=== PATIENT | male | born 1960 | race Caucasian/White ===

== ENCOUNTER 2017-05-18 07:15 | Inpatient (IN) | payer OTHER ==
[~2017-05-18 07:15] MED LIST: SODIUM CHLORIDE IV ONE; TRANEXAMIC ACID 1,000 MG in NS 100 ML IV ONE; TRANEXAMIC ACID IV ONE; morphINE PF 5 MG/10 ML INJ IT ONE
[2017-05-18] MEDS ORDERED: CHLORHEXIDINE GLUC HIBICLENS 118 ML BTL TP ONE (08:53)
[2017-05-18] MEDS ORDERED: THROMBIN (BOVINE) 20,000 UNIT VIAL TP ONE (08:53)
[2017-05-18] MEDS ORDERED: BUPIVACAINE 0.25% 30 ML SDV ONE ×2 (08:53→18:22)
[2017-05-18] MEDS ORDERED: CITRATE DEXTROSE SOLN 500 ML BAG ONE (08:54)
[2017-05-18] MEDS ORDERED: BACITRACIN 50,000 UNITS/10 ML SYR IRR ONE ×5 (08:54→18:11)
[2017-05-18] MEDS ORDERED: ACETAMINOPHEN 500 MG TAB PO ONE (08:57)
[2017-05-18] MEDS ORDERED: ceFAZolin 2 GM/SWFI 2 GM/20 ML SYR IVP ONE ×2 (08:57→10:00)
[2017-05-18] MEDS ORDERED: fentaNYL 100 MCG/2 ML INJ IT ONE ×3 (08:57→18:45)
[2017-05-18] MEDS ORDERED: LR 1,000 ML IV ONE (08:58)
[2017-05-18] MEDS ORDERED: PROPOFOL/EMULSION 500 MG/50 ML BOTTLE IV ONE ×4 (09:57→17:00)
[2017-05-18] MEDS ORDERED: fentaNYL 250 MCG/5 ML INJ ONE (09:58)
[2017-05-18] MEDS ORDERED: MIDAZOLAM 2 MG/2 ML VIAL IVP ONE (10:00)
--- NOTE | 2017-05-18 10:03 | PDANEPAE ---
ANE History of Present Illness 56 year old male for L2-S1 fusion. History significant for asthma, htn, sleep apnea,and obesity. ANE Past Medical History - Cardiovascular History Hx Hypertension: Yes Hx Arrhythmias: No Hx Chest Pain: No Hx Coronary Artery / Peripheral Vascular Disease: No Hx CHF / Valvular Disease: No Hx Palpitations: No - Pulmonary History Hx Asthma/Reactive Airway Disease: Yes Hx Recent Upper Respiratory Infection: No Hx Oxygen in Use at Home: No Hx Sleep Apnea: No Sleep Apnea Screening Result - Last Documented: Positive Pulmonary History Comment: Asthma - Neurologic History Hx Cerebrovascular Accident: No Hx Seizures: No Hx Dementia: No - Endocrine History Hx Diabetes: No - Renal History Hx Renal Disorders: No - Liver History Hx Hepatic Disorders: No - Neurological & Psychiatric Hx Hx Neurological and Psychiatric Disorders: No - Cancer History Hx Cancer: No - Congenital Disorder History Hx Congenital Disorders: No - GI History Hx Gastrointestinal Disorders: No - Other Health History Other Health History: Degenerative disc disease - Chronic Pain History Chronic Pain: Yes - Surgical History Prior Surgeries: right MITA,. tonsillectomy. L/5 Laminectomy ANE Review of Systems Review of systems is: negative Review of Systems: - Exercise capacity METS (RN): 4 METS ANE Patient History - Allergies Allergies/Adverse Reactions: ENVIRONMENTAL Allergy (Mild, Uncoded 01/02/12 10:16) NASAL CONGESTION/SNEEZING/WATERY EYES - Home Medications Home Medications: Albuterol [Proventil Inhaler HFA (*)] 1 - 2 puffs IH Q4H 05/02/17 [Last Taken ] Montelukast Sodium [Singulair] 10 mg PO HS 05/02/17 [Last Taken 05/17/17] Budesonide/Formoterol 160/4.5 [Symbicort 160-4.5 Mcg Inh (*)] 2 puffs IH BID [Last Taken 05/17/17] Carvedilol 12.5 mg PO BIDMEAL 05/17/17 [Last Taken 05/17/17] Hydrochlorothiazide [HCTZ (*)] 25 mg PO DAILY 05/17/17 [Last Taken 05/17/17] Irbesartan [Avapro] 300 mg PO HS 05/17/17 [Last Taken 05/17/17] Pravastatin Sodium [Pravachol] 40 mg PO DAILY 05/17/17 [Last Taken 05/17/17] Spironolactone [Aldactone 25 MG (*)] 50 mg PO DAILY 05/17/17 [Last Taken ] amLODIPine BESYLATE [Norvasc 10 mg (*)] 10 mg PO HS 05/17/17 [Last Taken ] - NPO status NPO Since - Liquids (Date): 05/17/17 NPO Since - Liquids (Time): 21:00 NPO Since - Solids (Date): 05/17/17 NPO Since - Solids (Time): 21:00 - Smoking Hx Smoking Status: Former smoker - Family Anes Hx Family Hx Anesthesia Complications: none ANE Labs/Vital Signs - Vital Signs Blood Pressure: 139/92 Heart Rate: 69 Respiratory Rate: 12 O2 Sat (%): 94 Height: 177.8 cm Weight: 113.398 kg ANE Physical Exam - Airway Neck exam: FROM Mallampati Score: Class 3 Mouth exam: dentures - Pulmonary Pulmonary: clear to auscultation - Cardiovascular Cardiovascular: regular rate and rhythym - ASA Status ASA Status: III ANE Anesthesia Plan Anesthesia Plan: general endotracheal anesthesia Lines/Monitors: arterial line
--- NOTE | 2017-05-18 11:38 | PDHPUP ---
History & Physical Update H&P update statement: This history and physical update is based on an assessment of the patient which was completed after admission or registration (within 24 hours), but prior to the surgery/procedure. H&P update: H&P reviewed & patient examined, no change in patient's condition since H&P completed
[2017-05-18] MEDS ORDERED: HYDROmorphONE/DILAUDID 2 MG/ML INJ ONE (12:15)
[2017-05-18] MEDS ORDERED: HYDROCODONE/APAP 5/325 TAB PO PRN (12:40)
[2017-05-18] MEDS ORDERED: LABETALOL HCL 5 MG/ML 20 ML MDV IVP PRN (12:40)
[2017-05-18] MEDS ORDERED: METOCLOPRAMIDE 10 MG/2 ML VIAL IVP PRN (12:40)
[2017-05-18] MEDS ORDERED: LR 500 ML IV PRN (12:40)
[2017-05-18] MEDS ORDERED: ONDANSETRON 4 MG/2 ML VIAL IVP PRN ×2 (12:40→19:23)
[2017-05-18] MEDS ORDERED: PROMETHAZINE HCL 25 MG/ML INJ IVP PRN (12:40)
[2017-05-18] MEDS ORDERED: ALBUTEROL 3 ML DEYVIAL IH PRN (12:40)
[2017-05-18] MEDS ORDERED: NALOXONE HCL 0.4 MG/ML INJ IVP PRN ×2 (12:40→19:23)
[2017-05-18] MEDS ORDERED: DEXAMETHASONE 4 MG/ML VIAL IVP PRN (12:40)
[2017-05-18] MEDS ORDERED: MEPERIDINE 25 MG/ML SYR IVP PRN (12:40)
[2017-05-18] MEDS ORDERED: PROPOFOL 200 MG/20 ML VIAL ONE ×3 (16:24→19:05)
[2017-05-18] MEDS ORDERED: fentaNYL 100 MCG/2 ML INJ ONE ×4 (16:40→20:33)
[2017-05-18] MEDS ORDERED: morphINE PF 5 MG/10 ML INJ ONE (16:40)
[2017-05-18] MEDS ORDERED: morphINE PF 5 MG/10 ML INJ IT ONE ×2 (18:30→18:45)
[2017-05-18] MEDS ORDERED: LACTULOSE 20 GM/30 ML UDCUP PO PRN (19:23)
[2017-05-18] MEDS ORDERED: MAGNESIUM HYDROXIDE 30 ML UDCUP PO PRN (19:23)
[2017-05-18] MEDS ORDERED: BISACODYL 10 MG SUPP PR PRN (19:23)
[2017-05-18] MEDS ORDERED: diphenhydrAMINE 25 MG CAP PO PRN (19:23)
[2017-05-18] MEDS ORDERED: fentaNYL 100 MCG/2 ML INJ IVP ONE (19:30)
--- NOTE | 2017-05-18 19:30 | SOAPPROG ---
SOAP Progress Note Assessment/Plan: Assessment: 56 yo M sp T12-S1 fusion with L2/3, L3/4, L4/5, L5/S1 TLIF Plan: neuro: stable LSO brace when out of bed follow hg/hct for high intraop blood loss PT/OT please call with neuro changes 05/18/17 19:28 Subjective: + back pain, no leg pain. Objective: Vital Signs Temp Pulse Resp BP Pulse Ox 36.6 C 69 12 138/91 H 95 05/18/17 11:12 05/18/17 11:12 05/18/17 11:12 05/18/17 11:12 05/18/17 11:12 somnolent PERRL, EOMI JOSE D x 4 + light touch ICD10 Worksheet Patient Problems: Problems Problem Status Onset Fusion of spine of thoracolumbar region Acute - ICD10 Problem Qualifiers (1) Fusion of spine of thoracolumbar region
[2017-05-18] MEDS ORDERED: DIAZEPAM 10 MG/2 ML SYR IVP PRN ×2 (19:37→19:38)
[2017-05-18] MEDS ORDERED: HYDROmorphONE/DILAUDID 1 MG/ML INJ ONE ×2 (19:40→19:42)
[2017-05-18] MEDS ORDERED: DIAZEPAM 10 MG/2 ML SYR ONE (19:40)
[2017-05-18] MEDS: fentaNYL 100 MCG/2 ML INJ IVP PRN ×3 (19:44→20:49)
[2017-05-18] MEDS: DIAZEPAM 10 MG/2 ML SYR IVP PRN ×3 (19:44→20:28)
--- NOTE | 2017-05-18 19:45 | POSTANESTH ---
Post Anesthetic Evaluation Cardiovascular Status: Normal, Stable Respiratory Status: Normal, Stable Level of Consciousness/Mental Status: Mildly Sleepy, Arousable Pain Control: Adequate, Prn Tx Ordered Nausea/Vomiting Control: Adequate, Prn Tx Ordered Complications Possibly Related to Anesthesia: None Noted
[2017-05-18] MEDS: HYDROmorphONE/DILAUDID 1 MG/ML INJ IVP PRN ×2 (19:54→20:28)
[2017-05-18] MEDS: NS W/ 20 KCl/L 1,000 ML IV SCH (21:30)
[2017-05-18] MEDS: morphINE PCA 30 MG/30 ML PCA IV PRN (21:38)
[2017-05-18] MEDS: ALBUTEROL 60 PUFFS/8 GM MDI IH SCH ×2 (21:49→23:36)
[2017-05-18] MEDS: FAMOTIDINE 20 MG TAB PO SCH (22:50)
[2017-05-18] MEDS: morphINE SR 30 MG TAB PO SCH (22:52)
[2017-05-18] MEDS: POLYETHYLENE GLYCOL 3350 17 GM PKT PO SCH (22:56)
[2017-05-18] MEDS: SENNOSIDES/DOCUSATE SODIUM TAB PO SCH (22:57)
[2017-05-18] MEDS: ceFAZolin 2 GM/DEXTROSE 100 ML IV SCH (22:57)
[2017-05-18] MEDS: BUDESONIDE/FORMOTEROL 160/4.5 60 PUFFS/MDI IH SCH (23:35)
[2017-05-19] MEDS: METHOCARBAMOL 750 MG TAB PO PRN ×3 (00:58→15:51)
--- NOTE | 2017-05-19 01:19 | GOP ---
[f rep st] OPERATIVE REPORT DATE OF OPERATION: 05/18/2017 SURGEON: Jun Avendano MD NEUROSURGEON: Jun Avendano MD SHAKE BACKBOARD NOTCHER: EMI Amaya ANESTHESIA: General endotracheal. PREOPERATIVE DIAGNOSIS: 1. Severe multilevel lumbar degenerative joint disease with severe spinal stenosis and loss of tammy l sagittal alignment (progressive kyphosis) with intractable low back pain and vqhfk-kodhawk-mhxr-lef t lower extremity radiculopathy and bilateral neurogenic claudication. 2. Failed conservative care. 3. Obesity. 4. High risk surgical candidate, given age, comorbidities, and required surgical intervention. POSTOPERATIVE DIAGNOSIS: 1. Severe multilevel lumbar degenerative joint disease with severe spinal stenosis and loss of tammy l sagittal alignment (progressive kyphosis) with intractable low back pain and dhtin-yodiwdi-sfnt-lef t lower extremity radiculopathy and bilateral neurogenic claudication. 2. Failed conservative care. 3. Obesity. 4. High risk surgical candidate, given age, comorbidities, and required surgical intervention. PROCEDURE PERFORMED: 1. Right-sided L2-3, L3-4, L4-5, and L5-S1 far lateral transpedicular decompression with T12 through S1 posterior segmental (pedicle screw and Axle device) fixation and posterolateral fusion with local autograft, bone morphogenic protein, and morselized allograft. 2. L2-3, L3-4, L4-5, and L5-S1 posterior/transforaminal lumbar interbody fusion with two structural PEEK interbody spacers, local autograft and bone morphogenic protein at each level. 3. Use of intraoperative microscopy, fluoroscopy, and computer volumetric stereotactic navigation wi th intraoperative neurophysiologic testing. 4. Injection of intrathecal narcotic analgesics and subcutaneous and intramuscular local anesthesia for postoperative pain control. FINDINGS: ESTIMATED BLOOD LOSS: 1000 cc. INDICATIONS: The patient is a 56-year-old man with intractable low back and pfyyq-bawqsyf-qixm-left lower extremity radicular symptoms, and bilateral lower extremity neurogenic claudication secondary t o severe multilevel lumbar degenerative joint disease and severe spinal stenosis with severe lateral recess impingement and loss of normal sagittal alignment with progressive kyphosis. The patient has failed extensive conservative care and presents now for multilevel surgical decompression and stabili zation procedure. DESCRIPTION OF PROCEDURE: After informed consent was obtained, the patient was taken to the operatin g room and placed in prone position on the Dustin table. The lumbosacral area was prepped and drape d in sterile fashion. After fluoroscopic localization of the correct level, the subcutaneous and int ramuscular tissues were infiltrated with local anesthesia. A midline linear incision was then create d from approximately L2 through S1. This was carried down to the fascial layer, which was incised us ing monopolar electrocautery and carried to the subcostal plane along the spinous processes and dulce a bilaterally. Intraoperative fluoroscopy was again utilized to verify the correct levels. Followin g this, the dissection was carried out over the facet joints. The Versa-Trac retractor system was in serted, and the levels were explored, along with the L1-2 level which demonstrated very severe arthri tic hypertrophy and some hypermobility. Based on the conversation with the patient preoperatively, I felt that it was in his best interests to extend this up to T12. This was also in conjunction with the preoperative MRI. The dissection was carried up to the T12 level therefore and the dissection ca rried out over the facet joints. Following this, the microscope was brought in, and right-sided far lateral transpedicular decompressions were performed with complete unroofing of the facet joints and neural foramen at L2-3, L3-4, L4-5, and L5-S1 on the right. The laminae were undercut so that a bila teral central canal decompression was achieved, as well as an extensive decompression of the lateral recesses. Following adequate decompression, the [employer] Neuronavigational System was brought in, and using computer volumetric stereotactic navigation, pedicle screws were placed at T12 through L1 bila terally. Each individual screw was tested neurophysiologically with monopolar electrostimulation and interpretation of the potentials by the surgeon. The short rods were then serially placed, first at L5-S1, then at L4-5, then at L3-4, then at L2-3, during which time distraction was created across th e interspaces, and complete diskectomies were performed with preparation of the endplates and placeme nt of 2 structural PEEK interbody spacers, local autograft, and bone protein at each level. The shor t rods were removed, and longer rods with maximal lordosis were then placed and secured under alf martin in order to further increase the amount of lordosis and to minimize the potential for posterior graft migration. The wound was copiously irrigated antibiotic irrigation. Meticulous hemostasis was achieved. 200 mcg of Duramorph and 150 mcg of fentanyl were then injected intrathecally for postope rative pain control. The remaining facet joints and lamina were then extensively decorticated from T 12 through S1, and the residual local autograft from the facetectomies, along with bone morphogenic p rotein and morselized allograft were placed out laterally from T12 through S1 for posterolateral fusi on. A drain was placed. The subcutaneous and intramuscular tissues were re-infiltrated with local a nesthesia, and after reverification of good position of the screws rods and interbody spacers, Axle d evices were placed at the T12-L1 and L5-S1 levels in order to prevent junctional kyphosis, and also b ecause the L5 screw did not have much bone in it due to the extensive amount of decompression require d. Following this, the wound was closed in a layered fashion using interrupted Vicryl sutures, follo wed by Steri-Strips on the skin. COMPLICATIONS: None. DISPOSITION: The patient is currently in the process of being repositioned for extubation. /[id number]/MODL
[2017-05-19] MEDS: ALBUTEROL 60 PUFFS/8 GM MDI IH SCH ×2 (03:23→08:10)
[2017-05-19] MEDS: IRBESARTAN 150 MG TAB PO SCH (03:33)
[2017-05-19] MEDS: PROMETHAZINE HCL 25 MG/ML INJ IVP PRN ×2 (05:07→12:01)
[2017-05-19 05:33] LABS: PLATELET COUNT 339 10^3/uL (150-400)
[2017-05-19] MEDS: ceFAZolin 2 GM/DEXTROSE 100 ML IV SCH (05:38)
[2017-05-19] MEDS: morphINE PCA 30 MG/30 ML PCA IV PRN (07:09)
[2017-05-19] MEDS: MONTELUKAST SODIUM 10 MG TAB PO SCH ×2 (07:10→21:25)
[2017-05-19] MEDS: oxyCODONE IR 5 MG TAB PO PRN (07:24)
[2017-05-19] MEDS: NS W/ 20 KCl/L 1,000 ML IV SCH (07:58)
[2017-05-19] MEDS ORDERED: ALBUTEROL 60 PUFFS/8 GM MDI IH PRN (08:07)
[2017-05-19] MEDS: BUDESONIDE/FORMOTEROL 160/4.5 60 PUFFS/MDI IH SCH ×2 (08:13→20:58)
--- NOTE | 2017-05-19 08:15 | NEUSURGPN ---
Date of Surgery: 05/18/17 Post Op Day: 1 Assessment/Plan: 56 yo male s/p T12-S1 fusion with L2-S1 TLIF - neuro stable - pain control: start MS Contin this morning and Oxycodone, start to wean off of CINDER PITMAN - continue WILMAN drain - postop L-spine x-rays pending - wear brace when out of bed - PT/OT - dc travis, dc art line - SCDs/TEDs/Lovenox - Likely transfer to floor today - Please contact neurosurgery with any changes in neuro status/exam Discussed with Dr. Sterling Subjective: Having localized back pain. No LE pain. Objective: Awake. Alert. PERRL. EOMI Facial expression symmetrical Muscle strength full at 5/5 Sensation intact - Physician Discussed Patient with : Juan Alberto Neurosurgery Physical Exam - Vitals, I&O, Labs I and O 05/18/17 05/19/17 05/20/17 05:59 05:59 05:59 Intake Total 7118 Output Total 2740 60 Balance 4378 -60 Weight 121.8 kg Intake: Oral (ml) 210 IV Intake (ml) 5700 IV Infused (ml) 1208 NS W/ 20 KCl/L 1,000 ml @ 1208 100 mls/hr IV CONT MOISES Rx#:[id number] Output: Urine (ml) 1150 60 Catheter 1150 60 Estimated Blood Loss (ml) 1000 Emesis (ml) 0 WILMAN Drain Output (ml) 590 Back Dustin [place] 590 Vital Signs Temp Pulse Resp BP Pulse Ox 36.6 C 99 10 L 102/58 L 93 05/19/17 07:45 05/19/17 07:45 05/19/17 07:45 05/19/17 07:45 05/19/17 07:45 Laboratory Results 05/19/17 05:15 05/19/17 05:15 ICD10 Worksheet Patient Problems: Problems Problem Status Onset Fusion of spine of thoracolumbar region Acute
[2017-05-19] MEDS: morphINE SR 30 MG TAB PO SCH (08:57)
[2017-05-19] MEDS: FAMOTIDINE 20 MG TAB PO SCH ×2 (08:58→21:25)
[2017-05-19] MEDS: SENNOSIDES/DOCUSATE SODIUM TAB PO SCH ×2 (08:58→21:25)
[2017-05-19] MEDS: PRAVASTATIN SODIUM 40 MG TAB PO SCH (08:58)
[2017-05-19] MEDS: POLYETHYLENE GLYCOL 3350 17 GM PKT PO SCH ×3 (08:58→21:25)
[2017-05-19] MEDS ORDERED: HYDROCHLOROTHIAZIDE 25 MG TAB PO SCH (09:00)
[2017-05-19] MEDS ORDERED: SPIRONOLACTONE 25 MG TAB PO SCH (09:00)
[2017-05-19] MEDS: CARVEDILOL 6.25 MG TAB PO SCH ×2 (09:04→17:56)
[2017-05-19] MEDS: ENOXAPARIN 40 MG/0.4 ML SYR SC SCH (09:04)
--- NOTE | 2017-05-19 09:18 | ASMTCMCOM ---
CM Note CM Note Notes: Patient is POD #1 T12 - S1 fusion with L2-S1 TLIF. He is stable and recovering in the ICU. Patient lives locally with his . PT/OT evals have been ordered, and we will await their recommendations for discharge planning. Patient will likely transfer to the floor today. Date Signed: 05/19/2017 09:17 AM Electronically Signed By:Milka Pa RN
[2017-05-19] MEDS: HYDROmorphONE/DILAUDID 2 MG TAB PO PRN ×3 (12:01→21:24)
[2017-05-19] MEDS ORDERED: NS 1,000 ML IV ONE ×2 (12:53→14:24)
[2017-05-19] MEDS ORDERED: DIAZEPAM IVP ONE (14:15)
--- NOTE | 2017-05-19 15:11 | GCON ---
[f rep st] CONSULTATION PULMONARY/CRITICAL CARE CONSULTATION. DATE OF CONSULTATION: 05/19/2017 REFERRING PHYSICIAN: Jun Avendano MD REASON FOR REFERRAL: Evaluation and management of hyperkalemia and acute renal insufficiency. HISTORY: The patient is a 56-year-old male with a history of hypertension, who had worsening back pa in and leg pain, who underwent a T12-S1 fusion with an L2-S1. His intraoperative course was unremark able. He was kept in the intensive care unit overnight. Today, he reports significant back pain cau sing him to have to move around quite a bit in order to be comfortable. He is wearing a back brace. He has had some nausea with oral pain medications, and has had just moderate p.o. intake. He denies any vomiting. PAST MEDICAL HISTORY: 1. Hypertension. 2. Asthma/reactive airways disease. 3. Sinusitis/polyposis status post endoscopic sinus surgery and polypectomy. MEDICATIONS: At the time of admission include albuterol, Singulair, Symbicort, Norvasc, Pravachol, A vapro, carvedilol, spironolactone, hydrochlorothiazide acute please ALLERGIES: None. SOCIAL HISTORY: The patient is a former smoker. He drinks alcohol socially. FAMILY HISTORY: Positive for hypertension. REVIEW OF SYSTEMS: A 10-point review of systems adds nothing to the history of present illness. PHYSICAL EXAMINATION: GENERAL: The patient is awake, alert, and in no acute distress except when mo ving, which is causing back pain. VITAL SIGNS: Blood pressure is 121/70 with a heart rate of 100. Respiratory rate is 12, oxygen saturations are 95% on room air. HEENT: Normocephalic and atraumatic . No icterus. NECK: No JVD. Trachea is midline. CHEST: Clear to auscultation. CARDIAC: Regula r rate and rhythm without murmur. ABDOMEN: Soft, nontender. Bowel sounds are present. EXTREMITIES : No clubbing, cyanosis, or edema. NEURO: The patient is awake and alert. No gross motor or senso ry deficits. LAB: White blood count is 20.9, up from 8.7. Hemoglobin is 11.8, down from 14.4. Chemistry group s hows a potassium of 5.8, down from 6.0 earlier this morning. Creatinine is 2.2, up from 1.8 earlier this morning, and up from 0.8 2 weeks ago. Blood sugar 147. Arterial blood gas last night shows a p H of 7.33 with a pO2 of 120, CO2 of 33. ASSESSMENT: 1. Status post lumbar spine surgery. The patient is having postoperative pain as expected, which is being managed with oral and IV narcotics, as well as Valium and muscle relaxants. 2. Acute kidney injury. The patient's creatinine has increased markedly and his urine output is mikael n quite a bit. There are no obvious renal insults besides his chronic antihypertensives. I suspect he has a component of intravascular depletion perioperatively. 3. Hyperkalemia. This is likely related to the patient's acute kidney injury. He is not having any concerning ECG abnormalities on his monitor. 4. Asthma/reactive airways disease. The patient currently denies any respiratory difficulties. 5. Obesity. RECOMMENDATIONS: 1. I will give a bolus of 1 L normal saline. 2. I am going to hold his antihypertensives, specifically including spironolactone, which could cont ribute to hyperkalemia. 3. A chemistry group will be rechecked after a L of saline, and further efforts to reduce his potass ium and improve urine output and renal function will be initiated as indicated. /[id number]/MODL
[2017-05-19] MEDS ORDERED: SCOPOLAMINE HYDROBROMIDE 1 MG/3 DAYS PATCH TD ONE (16:00)
[2017-05-20] MEDS: morphINE PCA 30 MG/30 ML PCA IV PRN (03:42)
[2017-05-20] MEDS: HYDROmorphONE/DILAUDID 2 MG TAB PO PRN ×5 (03:43→22:54)
[2017-05-20] MEDS: morphINE SR 30 MG TAB PO SCH ×3 (05:29→21:11)
[2017-05-20] MEDS: METHOCARBAMOL 750 MG TAB PO PRN ×4 (06:00→22:53)
[2017-05-20] MEDS: oxyCODONE IR 5 MG TAB PO PRN ×4 (06:00→21:11)
--- NOTE | 2017-05-20 06:54 | NEUSURGPN ---
Date of Surgery: 05/19/17 Post Op Day: 1 Assessment/Plan: Assessment: 56 yo male s/p T12-S1 fusion with L2-S1 TLIF POD #2 Plan: -neuro stable -pain control: MSContin/Oxycodone, start to wean off of WELDING MACHINE ASSEMBLER -pt states legs feel good/pt with expected lower back pain -continue WILMAN drain -BUN/Cr improved -postop L-spine x-rays look good, no complications-reviewed with Dr Martin -wear brace when out of bed -PT/OT -travis out and voiding on own -transfer to floor today -SCDs/TEDs/Lovenox -Please contact neurosurgery with any changes in neuro status/exam -Discussed with Dr. Martin. Subjective: Awake and alert. Pt with expected lower back pain. Legs feel better. No pedersen/ neck/chest/abd or gu complaints. No f/c/n/v/d. Objective: AAO x 3, PERRLA/EOMI no droop CN 2-12 grossly intact +lt touch 5/5 BUE/BLE = CDI WILMAN in place Neuro Check Frequency: per routine Urinary Catheter in Place: No - Physician Discussed Patient with : Juan Alberto Neurosurgery Physical Exam - Vitals, I&O, Labs I and O 05/19/17 05/20/17 05/21/17 05:59 05:59 05:59 Intake Total 7118 5556 Output Total 2740 2205 Balance 4378 3351 Weight 121.8 kg Intake: Oral (ml) 210 1650 IV Intake (ml) 5700 906 IV Infused (ml) 1208 3000 NS W/ 20 KCl/L 1,000 ml @ 1208 100 mls/hr IV CONT MOISES Rx#:[id number] Ns 1,000 ml @ 3000 mls/hr 3000 IV ONCE ONE Rx#: [id number] Output: Urine (ml) 1150 1645 Catheter 1150 60 Toilet 100 Urinal 1485 Estimated Blood Loss (ml) 1000 Emesis (ml) 0 WILMAN Drain Output (ml) 590 560 Back Dustin [place] 590 560 Other: Number of Voids Urinal 5 Number of Stools Urinal 0 Vital Signs Temp Pulse Resp BP Pulse Ox 37.0 C 100 16 96/55 L 96 05/20/17 00:00 05/20/17 04:00 05/20/17 04:00 05/20/17 04:00 05/20/17 04:00 Laboratory Results 05/19/17 05:15 05/20/17 05:38 ICD10 Worksheet Patient Problems: Problems Problem Status Onset Fusion of spine of thoracolumbar region Acute
[2017-05-20] MEDS: SENNOSIDES/DOCUSATE SODIUM TAB PO SCH ×2 (08:26→21:11)
[2017-05-20] MEDS: CARVEDILOL 6.25 MG TAB PO SCH ×2 (08:30→18:28)
[2017-05-20] MEDS: FAMOTIDINE 20 MG TAB PO SCH ×2 (08:30→21:11)
[2017-05-20] MEDS: PRAVASTATIN SODIUM 40 MG TAB PO SCH (08:30)
[2017-05-20] MEDS: ONDANSETRON DISINTEGRATING 4 MG TAB PO PRN (08:30)
[2017-05-20] MEDS: POLYETHYLENE GLYCOL 3350 17 GM PKT PO SCH ×3 (08:31→21:14)
[2017-05-20] MEDS: BUDESONIDE/FORMOTEROL 160/4.5 60 PUFFS/MDI IH SCH ×2 (08:31→22:02)
[2017-05-20] MEDS: ENOXAPARIN 40 MG/0.4 ML SYR SC SCH (08:31)
[2017-05-20] MEDS ORDERED: METOCLOPRAMIDE 10 MG/2 ML VIAL IVP ONE (10:30)
[2017-05-20] MEDS ORDERED: METHYLNALTREXONE BROMIDE 12 MG/0.6 ML INJ SC ONE (10:30)
--- NOTE | 2017-05-20 15:24 | ASMTCMCOM ---
CM Note CM Note Notes: Pt s/p spinal surgery. PT has cleared him. OT recommended home vs home care. Anticipate d/c with no CM needs but will follow up with pt prior to d/c regarding any unidentified needs. Date Signed: 05/20/2017 03:23 PM Electronically Signed By:CARLOS Rowe
[2017-05-21] MEDS: oxyCODONE IR 5 MG TAB PO PRN ×5 (02:06→20:41)
[2017-05-21] MEDS: MONTELUKAST SODIUM 10 MG TAB PO SCH ×2 (02:28→20:40)
[2017-05-21] MEDS: HYDROmorphONE/DILAUDID 2 MG TAB PO PRN (04:24)
--- NOTE | 2017-05-21 07:04 | NEUSURGPN ---
Date of Surgery: 05/18/17 Post Op Day: 3 Assessment/Plan: Assessment: 56 yo male s/p T12-S1 fusion with L2-S1 TLIF POD #3 Plan: -neuro stable -pain control: MSContin/Oxycodone-will try to adjust as he feels mainly lower back pain -pt states legs feel good/pt with expected lower back pain -continue WILMAN drain as still productive -BUN/Cr improved c/w prior labs -postop L-spine x-rays look good, no complications-reviewed with Dr Martin yesterday -wear brace when out of bed-fitting well -PT/OT-CPM -travis out and voiding well on own -plan for dc in next 1-2 days -SCDs/TEDs/Lovenox -Please contact neurosurgery with any changes in neuro status/exam -Discussed with Dr. Martin. Subjective: Awake and alert. NAD. Eating/drinking and voiding. No f/c/n/v/d. No pedersen/neck/ chest/abd or gu complaints. Legs feel good. Pt with expected lower back pain. Objective: AAO x 3, PERRLA/EOMI no droop CN 2-12 grossly intact +lt touch 5/5 BUE/BLE = CDI WILMAN in place Neuro Check Frequency: per routine Urinary Catheter in Place: No - Physician Discussed Patient with : Juan Alberto Neurosurgery Physical Exam - Vitals, I&O, Labs I and O 05/20/17 05/21/17 05/22/17 05:59 05:59 05:59 Intake Total 5556 450 Output Total 2205 1040 Balance 3351 -590 Intake: Oral (ml) 1650 450 IV Intake (ml) 906 IV Infused (ml) 3000 Ns 1,000 ml @ 3000 mls/hr 3000 IV ONCE ONE Rx#: [id number] Output: Urine (ml) 1645 725 Catheter 60 Toilet 100 Urinal 1485 725 WILMAN Drain Output (ml) 560 315 Back Dustin [place] 560 315 Other: Number of Voids Toilet 1 Urinal 5 1 Number of Stools Urinal 0 Vital Signs Temp Pulse Resp BP Pulse Ox 36.7 C 94 18 120/44 L 96 05/20/17 23:06 05/20/17 23:06 05/20/17 23:06 05/20/17 23:06 05/20/17 23:06 Laboratory Results 05/19/17 05:15 05/21/17 04:31 ICD10 Worksheet Patient Problems: Problems Problem Status Onset Fusion of spine of thoracolumbar region Acute
[2017-05-21] MEDS: CARVEDILOL 6.25 MG TAB PO SCH ×2 (08:01→18:27)
[2017-05-21] MEDS: POLYETHYLENE GLYCOL 3350 17 GM PKT PO SCH ×3 (08:01→22:17)
[2017-05-21] MEDS: ENOXAPARIN 40 MG/0.4 ML SYR SC SCH (08:01)
[2017-05-21] MEDS: FAMOTIDINE 20 MG TAB PO SCH ×2 (08:02→20:40)
[2017-05-21] MEDS: SENNOSIDES/DOCUSATE SODIUM TAB PO SCH ×2 (08:02→20:40)
[2017-05-21] MEDS: morphINE SR 30 MG TAB PO SCH ×2 (08:02→16:41)
[2017-05-21] MEDS: PRAVASTATIN SODIUM 40 MG TAB PO SCH (08:02)
[2017-05-21] MEDS: METHOCARBAMOL 750 MG TAB PO PRN ×2 (12:33→20:40)
[2017-05-21] MEDS: BUDESONIDE/FORMOTEROL 160/4.5 60 PUFFS/MDI IH SCH ×2 (13:22→22:10)
[2017-05-21] MEDS: ONDANSETRON DISINTEGRATING 4 MG TAB PO PRN (20:15)
[2017-05-21] MEDS: IRBESARTAN 150 MG TAB PO SCH (20:41)
[2017-05-22] MEDS: morphINE SR 30 MG TAB PO SCH ×4 (01:54→22:08)
[2017-05-22] MEDS: METHOCARBAMOL 750 MG TAB PO PRN ×2 (03:44→22:29)
[2017-05-22] MEDS: oxyCODONE IR 5 MG TAB PO PRN ×2 (03:44→22:29)
[2017-05-22] MEDS: BUDESONIDE/FORMOTEROL 160/4.5 60 PUFFS/MDI IH SCH ×2 (08:00→21:45)
[2017-05-22] MEDS ORDERED: SCOPOLAMINE HYDROBROMIDE 1 MG/3 DAYS PATCH TD ONE (08:00)
--- NOTE | 2017-05-22 08:00 | NEUSURGPN ---
Date of Surgery: 05/18/17 Post Op Day: 4 Assessment/Plan: Assessment: 56 yo male s/p T12-S1 fusion with L2-S1 TLIF POD #4 Plan: -neuro stable -pain control: MSContin/Oxycodone -pt states legs feel good/pt with expected lower back pain -WILMAN was accidentally removed by patient -BUN/Cr improved -postop L-spine x-rays look good, no complications-Dr Martin has some concern with lack of lordosis with the L4 level tilt which may require a PSO. Dr Martin will be by later today to speak with patient about this. -wear brace when out of bed-fitting well -PT/OT -SCDs/TEDs/Lovenox -Please contact neurosurgery with any changes in neuro status/exam -Discussed with Dr. Martin Subjective: Doing well, in gym with PT Objective: AAO x 3, PERRLA/EOMI no droop CN 2-12 grossly intact +lt touch 5/5 BUE/BLE = CDI Neuro Check Frequency: per routine Urinary Catheter in Place: No - Physician Discussed Patient with : Juan Alberto (Dr Martin will be by later today to see patient) Neurosurgery Physical Exam - Vitals, I&O, Labs I and O 05/21/17 05/22/17 05/23/17 05:59 05:59 05:59 Intake Total 450 Output Total 1040 280 Balance -590 -280 Intake: Oral (ml) 450 Output: Urine (ml) 725 200 Urinal 725 200 WILMAN Drain Output (ml) 315 80 Back Dustin [place] 315 80 Other: Number of Voids Toilet 1 Urinal 1 5 Number of Stools Urinal 3 Vital Signs Temp Pulse Resp BP Pulse Ox 37.0 C 79 19 101/54 L 100 05/22/17 00:00 05/22/17 00:00 05/22/17 00:00 05/22/17 00:00 05/22/17 00:00 Laboratory Results 05/19/17 05:15 05/21/17 04:31 ICD10 Worksheet Patient Problems: Problems Problem Status Onset Fusion of spine of thoracolumbar region Acute
[2017-05-22] MEDS: ENOXAPARIN 40 MG/0.4 ML SYR SC SCH (11:06)
[2017-05-22] MEDS: CARVEDILOL 6.25 MG TAB PO SCH ×2 (11:06→21:28)
[2017-05-22] MEDS: FAMOTIDINE 20 MG TAB PO SCH ×2 (11:06→22:08)
[2017-05-22] MEDS: POLYETHYLENE GLYCOL 3350 17 GM PKT PO SCH ×3 (11:10→22:06)
[2017-05-22] MEDS: PRAVASTATIN SODIUM 40 MG TAB PO SCH (11:10)
[2017-05-22] MEDS: SENNOSIDES/DOCUSATE SODIUM TAB PO SCH ×2 (11:10→22:07)
[2017-05-22] MEDS: ONDANSETRON DISINTEGRATING 4 MG TAB PO PRN (11:14)
[2017-05-22] MEDS ORDERED: DIAZEPAM 10 MG/2 ML SYR IVP ONE (11:30)
[2017-05-22] MEDS ORDERED: THROMBIN (BOVINE) 20,000 UNIT VIAL TP ONE ×3 (11:34→17:33)
[2017-05-22] MEDS ORDERED: CHLORHEXIDINE GLUC HIBICLENS 118 ML BTL TP ONE (11:34)
[2017-05-22] MEDS ORDERED: BUPIVACAINE 0.25% 30 ML SDV ONE (11:34)
[2017-05-22] MEDS ORDERED: CITRATE DEXTROSE SOLN 500 ML BAG ONE (11:34)
[2017-05-22] MEDS ORDERED: BACITRACIN 50,000 UNITS/10 ML SYR IRR ONE (11:35)
[2017-05-22] MEDS ORDERED: LR 1,000 ML IV ONE (12:11)
[2017-05-22] MEDS ORDERED: fentaNYL 100 MCG/2 ML INJ ONE ×3 (12:50→18:51)
[2017-05-22] MEDS: fentaNYL 100 MCG/2 ML INJ IVP PRN ×3 (12:52→14:09)
[2017-05-22] MEDS ORDERED: HYDROmorphONE/DILAUDID 2 MG/ML INJ ONE ×2 (15:19→17:18)
[2017-05-22] MEDS ORDERED: KETAMINE 200 MG/20 ML VIAL ONE (15:20)
[2017-05-22] MEDS ORDERED: PROPOFOL 200 MG/20 ML VIAL ONE (15:20)
[2017-05-22] MEDS ORDERED: MIDAZOLAM 2 MG/2 ML VIAL IVP ONE (15:21)
--- NOTE | 2017-05-22 15:24 | PDANEPAE ---
ANE Past Medical History - Cardiovascular History Hx Hypertension: Yes Hx Arrhythmias: No Hx Chest Pain: No Hx Coronary Artery / Peripheral Vascular Disease: No Hx CHF / Valvular Disease: No Hx Palpitations: No - Pulmonary History Hx Asthma/Reactive Airway Disease: Yes Hx Recent Upper Respiratory Infection: No Hx Oxygen in Use at Home: No Hx Sleep Apnea: No Sleep Apnea Screening Result - Last Documented: Positive Pulmonary History Comment: Asthma - Neurologic History Hx Cerebrovascular Accident: No Hx Seizures: No Hx Dementia: No - Endocrine History Hx Diabetes: No - Renal History Hx Renal Disorders: No - Liver History Hx Hepatic Disorders: No - Neurological & Psychiatric Hx Hx Neurological and Psychiatric Disorders: No - Cancer History Hx Cancer: No - Congenital Disorder History Hx Congenital Disorders: No - GI History Hx Gastrointestinal Disorders: No - Other Health History Other Health History: Degenerative disc disease - Chronic Pain History Chronic Pain: Yes - Surgical History Prior Surgeries: right MITA,. tonsillectomy. L/5 Laminectomy ANE Review of Systems Review of Systems: - Exercise capacity METS (RN): 4 METS ANE Patient History - Allergies Allergies/Adverse Reactions: ENVIRONMENTAL Allergy (Mild, Uncoded 01/02/12 10:16) NASAL CONGESTION/SNEEZING/WATERY EYES - Home Medications Home Medications: Albuterol [Proventil Inhaler HFA (*)] 1 - 2 puffs IH Q4H 05/02/17 [Last Taken ] Montelukast Sodium [Singulair] 10 mg PO HS 05/02/17 [Last Taken 05/17/17] Budesonide/Formoterol 160/4.5 [Symbicort 160-4.5 Mcg Inh (*)] 2 puffs IH BID [Last Taken 05/17/17] Carvedilol 12.5 mg PO BIDMEAL 05/17/17 [Last Taken 05/17/17] Hydrochlorothiazide [HCTZ (*)] 25 mg PO DAILY 05/17/17 [Last Taken 05/17/17] Irbesartan [Avapro] 300 mg PO HS 05/17/17 [Last Taken 05/17/17] Pravastatin Sodium [Pravachol] 40 mg PO DAILY 05/17/17 [Last Taken 05/17/17] Spironolactone [Aldactone 25 MG (*)] 50 mg PO DAILY 01/31/18 [Last Taken ] amLODIPine BESYLATE [Norvasc 10 mg (*)] 10 mg PO HS 05/17/17 [Last Taken ] - NPO status NPO Since - Liquids (Date): 05/21/17 NPO Since - Liquids (Time): 23:30 NPO Since - Solids (Date): 05/21/17 NPO Since - Solids (Time): 19:00 - Anes Hx Anes Hx: no prior problems - Smoking Hx Smoking Status: Former smoker - Family Anes Hx Family Hx Anesthesia Complications: none ANE Labs/Vital Signs - Labs Result Diagrams: 05/19/17 05:15 05/21/17 04:31 - Vital Signs Blood Pressure: 117/64 Heart Rate: 86 Respiratory Rate: 16 O2 Sat (%): 94 Height: 177.8 cm Weight: 121.8 kg ANE Physical Exam - Airway Mallampati Score: Class 1 Mouth exam: dentures - Pulmonary Pulmonary: no respiratory distress, no rales or rhonchi, clear to auscultation - Cardiovascular Cardiovascular: regular rate and rhythym, no murmur, rub, or gallop - ASA Status ASA Status: III ANE Anesthesia Plan Anesthesia Plan: general endotracheal anesthesia
[2017-05-22] MEDS ORDERED: DEXMEDETOMIDINE/NS 4MCG/ML 50 ML BTL IV ONE (15:26)
[2017-05-22] MEDS ORDERED: LIDOCAINE 2% 5 ML SDV ONE (15:26)
[2017-05-22] MEDS ORDERED: DEXAMETHASONE 4 MG/ML VIAL ONE ×2 (15:37)
[2017-05-22] MEDS ORDERED: TRANEXAMIC ACID 1,000 MG in NS (SYRINGE) 50 ML IV ONE (16:44)
[2017-05-22] MEDS ORDERED: ONDANSETRON 4 MG/2 ML VIAL ONE (17:14)
[2017-05-22] MEDS ORDERED: morphINE PF 5 MG/10 ML INJ ONE (18:56)
[2017-05-22] MEDS ORDERED: PROMETHAZINE HCL 25 MG/ML INJ IVP PRN (19:08)
[2017-05-22] MEDS ORDERED: ENALAPRILAT DIHYDRATE 1.25 MG/ML VIAL IVP PRN (19:08)
[2017-05-22] MEDS ORDERED: fentaNYL 100 MCG/2 ML INJ IVP PRN (19:08)
[2017-05-22] MEDS ORDERED: OXYCODONE/APAP 5/325 TAB PO PRN (19:08)
[2017-05-22] MEDS ORDERED: LR 500 ML IV PRN (19:08)
[2017-05-22] MEDS ORDERED: MEPERIDINE 25 MG/ML SYR IVP PRN (19:08)
[2017-05-22] MEDS ORDERED: NALOXONE HCL 0.4 MG/ML INJ IVP PRN (19:08)
[2017-05-22] MEDS ORDERED: ONDANSETRON 4 MG/2 ML VIAL IVP PRN (19:08)
--- NOTE | 2017-05-22 19:43 | SOAPPROG ---
SOAP Progress Note Assessment/Plan: Assessment: 56 yo M sp T12-S1 fusion with L3 osteotomy Plan: neuro: stable LSO brace when out of bed bedrest overnight do not put WILMAN to suction PT/OT please call with neuro changes 05/18/17 19:28 05/22/17 19:42 Subjective: + back pain, no leg pain. Objective: Vital Signs Temp Pulse Resp BP Pulse Ox 36.8 C 86 16 117/64 94 05/22/17 12:29 05/22/17 15:24 05/22/17 15:24 05/22/17 15:24 05/22/17 15:24 Laboratory Results 05/19/17 05:15 05/21/17 04:31 05/21/17 05/22/17 05/23/17 05:59 05:59 05:59 Intake Total 450 Output Total 1040 280 Balance -590 -280 somnolent PERRL, no facial droop JOSE D x 4 + light touch ICD10 Worksheet Patient Problems: Problems Problem Status Onset Fusion of spine of thoracolumbar region Acute - ICD10 Problem Qualifiers (1) Fusion of spine of thoracolumbar region
--- NOTE | 2017-05-22 20:03 | POSTANESTH ---
Post Anesthetic Evaluation Cardiovascular Status: Normal, Stable, Similar to Pre-Op Cond Respiratory Status: Normal, Stable, Similar to Pre-op Cond. Level of Consciousness/Mental Status: Can Participate in Eval, Moderately Sleepy Pain Control: Adequate, Prn Tx Ordered Nausea/Vomiting Control: Adequate, Prn Tx Ordered Complications Possibly Related to Anesthesia: None Noted
[2017-05-22] MEDS: IRBESARTAN 150 MG TAB PO SCH (22:07)
[2017-05-22] MEDS: MONTELUKAST SODIUM 10 MG TAB PO SCH (22:07)
[2017-05-23] MEDS: METHOCARBAMOL 750 MG TAB PO PRN (03:48)
[2017-05-23] MEDS: oxyCODONE IR 5 MG TAB PO PRN ×4 (03:49→17:18)
--- NOTE | 2017-05-23 05:31 | GOP ---
[f rep st] OPERATIVE REPORT DATE OF OPERATION: 05/22/2017 SURGEON: Jun Avendano MD NEUROSURGEON: Jun Avendano MD. CABLE WORKER HELPER: EMI Quinn. ANESTHESIA: General endotracheal. PREOPERATIVE DIAGNOSIS: Flat back syndrome with persistent loss of lumbar lordosis, status post recent T12-S1 fusion with multilevel transforaminal lumbar interbody fusion. POSTOPERATIVE DIAGNOSIS: Flat back syndrome with persistent loss of lumbar lordosis, status post recent T12-S1 fusion with multilevel transforaminal lumbar interbody fusion. PROCEDURE PERFORMED: 1. Removal and replacement of posterior segmental instrumentation from T12 through S1. 2. L3 pedicle subtraction osteotomy/partial corpectomy. 3. Revision L1-2 transforaminal lumbar interbody fusion. 4. Redo T12-S1 posterior lateral fusion with local autograft and bone morphogenic protein. 5. Use of intraoperative microscopy and fluoroscopy. FINDINGS: ESTIMATED BLOOD LOSS: 350 cc. INDICATIONS: The patient is a 56-year-old man, who recently underwent a T12-S1 decompression and stabilization with multilevel TLIF in an effort to restore proper sagittal alignment (lumbar lordosis) and decompress the spinal canal. The patient's radicular leg symptoms were very much improved after the surgery 4 days ago, but he was still walking hunched over and lateral plain films including 36 x 14 inches x-rays confirmed that C2 was approximately 12 cm in front of the sacrum, and he was going to end up with chronic severe flat back syndrome. Revision of this situation down the road would be an extremely large and difficult surgery, and after detailed discussion of the risks versus the benefits, it was decided that we would go back and remove the instrumentation and perform a pedicle subtraction osteotomy now instead of in the future. This possibility had been discussed with the patient and family prior to surgery, that he may need the osteotomy in order to achieve adequate synagogue of lumbar lordosis but we all felt that it was in the best interest of the patient to try and achieve this first with the smaller surgery that was performed 4 days ago and if the result was not adequate then consider staging the pedicle subtraction osteotomy, as we are doing now. This was pre-planned based on the clinical and radiographic outcomes of the initial surgery 4 days ago. Clinically he is still hunched forward and radiographically his C2 is 12.5 cm in front of the sacrum so we are now doing the 2nd stage of the operation which was pre-planned if this outcome occurred. DESCRIPTION OF PROCEDURE: After informed consent was obtained, the patient was taken to the operating room and placed in the prone position on the Dustin table. The thoracolumbosacral areas were prepped and draped in sterile fashion. After fluoroscopic localization of the correct levels, the prior incision was carefully opened down to the instrumentation. The locking caps were all removed from T12-S1 and the rods removed. The L3 pedicle screws were removed and an extensive laminectomy was performed at L3, the inferior aspect of L2, and the superior aspect of L4. The pedicles, any remaining facet joints , and transverse processes were all removed at the L2-3 level. The 6 mm coarse radha bur was then utilized along with the Kerrisons and double-action rongeur to remove the pedicles all the way down to the anterior aspect of the vertebral body in a wedge-shaped fashion. The posterior TLIF graft was also removed at L2-3 and a revision TLIF was performed. An eggshell osteotomy was performed in the standard fashion, and following this the lumbar lordosis was recreated and the rods placed and secured with approximately 21 mm of reduction from L2-L4 on the left and 22 mm of reduction from L2-L4 on the right. The coronal plane was maintained in good alignment. Following this, the posterolateral fusion was redone with local autograft in the laminectomy defect along with bone morphogenic protein, all the way from T12-S1, and a drain was placed. 200 mcg of Duramorph along with 50 mcg of fentanyl injected intrathecally for postoperative pain control. A drain was placed and the wound was closed in a layered fashion using interrupted Vicryl sutures followed by Steri-Strips on the skin. COMPLICATIONS: None. DISPOSITION: The patient is currently in the process of being repositioned for extubation. /[id number]/MODL MTDD
[2017-05-23] MEDS: ENOXAPARIN 40 MG/0.4 ML SYR SC SCH (09:11)
[2017-05-23] MEDS: SENNOSIDES/DOCUSATE SODIUM TAB PO SCH ×2 (09:11→20:09)
[2017-05-23] MEDS: morphINE SR 30 MG TAB PO SCH ×3 (09:11→21:58)
[2017-05-23] MEDS: CARVEDILOL 6.25 MG TAB PO SCH ×2 (09:12→18:42)
[2017-05-23] MEDS: POLYETHYLENE GLYCOL 3350 17 GM PKT PO SCH ×3 (09:12→21:58)
[2017-05-23] MEDS: FAMOTIDINE 20 MG TAB PO SCH ×2 (09:12→20:08)
[2017-05-23] MEDS: PRAVASTATIN SODIUM 40 MG TAB PO SCH (09:12)
--- NOTE | 2017-05-23 09:20 | NEUSURGPN ---
Date of Surgery: 05/22/17 Post Op Day: 1 Assessment/Plan: Assessment: 56 yo M sp T12-S1 fusion with L3 osteotomy POD#1 Plan: -neuro stable -pain control: MSContin/Oxycodone -WILMAN to no suction -wear brace when out of bed-will have [employer] fit today for Jewitt brace, ok to wear LSO until Jewitt arrives -Ok to get out of bed -PT/OT -SCDs/TEDs -Please contact neurosurgery with any changes in neuro status/exam -Discussed with Dr. Avendano Subjective: patient doing well, remained flat through the night Objective: AxO x3 PERRLA 5/5 BLE Dressing CDI WILMAN to no suction, patent Neuro Check Frequency: per routine Urinary Catheter in Place: No - Physician Discussed Patient with : Juan Alberto Neurosurgery Physical Exam - Vitals, I&O, Labs I and O 05/22/17 05/23/17 05/24/17 05:59 05:59 05:59 Intake Total 3316 Output Total 280 1402 Balance -280 1914 Weight 121.8 kg Intake: Oral (ml) 2166 IV Intake (ml) 1150 Output: Urine (ml) 200 1050 Catheter 1050 Urinal 200 Estimated Blood Loss (ml) 350 Emesis (ml) 0 WILMAN Drain Output (ml) 80 2 Back Dustin [place] 80 2 Other: Number of Voids Toilet 2 Urinal 5 Number of Stools Toilet 1 Urinal 3 Vital Signs Temp Pulse Resp BP Pulse Ox 36.7 C 82 12 119/52 L 97 05/23/17 07:18 05/23/17 09:12 05/23/17 07:18 05/23/17 09:12 05/23/17 07:18 Laboratory Results 05/19/17 05:15 05/21/17 04:31 ICD10 Worksheet Patient Problems: Problems Problem Status Onset Fusion of spine of thoracolumbar region Acute
[2017-05-23] MEDS: BUDESONIDE/FORMOTEROL 160/4.5 60 PUFFS/MDI IH SCH ×2 (10:10→20:29)
[2017-05-23] MEDS: METHOCARBAMOL 750 MG TAB PO SCH ×2 (15:46→20:08)
--- NOTE | 2017-05-23 16:29 | ASMTCMCOM ---
CM Note CM Note Notes: PT rec home, OT rech home/HHC. Pt feels safe going home w support of family an no HHC. 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 Anticipate pt will d/c when medically stable, no CM d/c needs identified at this time. CM available for changes/needs. Date Signed: 05/23/2017 04:29 PM Electronically Signed By:CARLOS Barrow
[2017-05-23] MEDS: IRBESARTAN 150 MG TAB PO SCH (20:08)
[2017-05-23] MEDS: MONTELUKAST SODIUM 10 MG TAB PO SCH (20:09)
[2017-05-23] MEDS: HYDROmorphONE/DILAUDID 2 MG TAB PO PRN ×2 (20:09→23:49)
[2017-05-24] MEDS: oxyCODONE IR 5 MG TAB PO PRN ×3 (01:20→10:13)
[2017-05-24] MEDS: HYDROmorphONE/DILAUDID 2 MG TAB PO PRN ×4 (03:55→20:38)
[2017-05-24] MEDS: METHOCARBAMOL 750 MG TAB PO SCH ×4 (06:08→21:50)
--- NOTE | 2017-05-24 08:17 | NEUSURGPN ---
Date of Surgery: 05/22/17 Post Op Day: 2 Assessment/Plan: Assessment: 56 yo M sp T12-S1 fusion with L3 osteotomy POD#2 Plan: -neuro stable -pain control: MSContin, increased Oxycodone yesterday and changed Robaxin to scheduled. Patient still required IV pain medication last night -Ok to place ice pack to incisional area -DC travis this am -Post op xrays show stable hardware placement -BP 100/40's this am, patient denies any dizziness, will check H/H this am -WILMAN to no suction -Ok to get out of bed with Sameer brace -PT/OT -SCDs/TEDs -Patient desires to go home but understands that we need to work on pain management today to ensure he is covered with oral medications -Please contact neurosurgery with any changes in neuro status/exam -Discussed with Dr. Avendano Subjective: Sitting in chair, incisional pain Objective: AxO x3 PERRLA 5/5 BLE Dressing CDI WILMAN to no suction, patent Neuro Check Frequency: per routine Urinary Catheter in Place: Yes Urinary Catheter Indication: Other (Use Comment) (Will remove this am) - Physician Discussed Patient with : Juan Alberto Neurosurgery Physical Exam - Vitals, I&O, Labs I and O 05/23/17 05/24/17 05/25/17 05:59 05:59 05:59 Intake Total 3316 800 Output Total 1402 1675 Balance 1914 -875 Weight 121.8 kg Intake: Oral (ml) 2166 800 IV Intake (ml) 1150 Output: Urine (ml) 1050 1600 Catheter 1050 1600 Estimated Blood Loss (ml) 350 Emesis (ml) 0 WILMAN Drain Output (ml) 2 75 Back Dustin [place] 2 75 Other: Number of Voids Toilet 2 Number of Stools Toilet 1 1 Vital Signs Temp Pulse Resp BP Pulse Ox 36.6 C 79 16 104/47 L 85 L 05/24/17 07:51 05/24/17 07:51 05/24/17 07:51 05/24/17 07:51 05/24/17 07:51 Laboratory Results 05/19/17 05:15 05/21/17 04:31 ICD10 Worksheet Patient Problems: Problems Problem Status Onset Fusion of spine of thoracolumbar region Acute
[2017-05-24] MEDS: ENOXAPARIN 40 MG/0.4 ML SYR SC SCH (08:37)
[2017-05-24] MEDS: FAMOTIDINE 20 MG TAB PO SCH ×2 (08:38→21:50)
[2017-05-24] MEDS: CARVEDILOL 6.25 MG TAB PO SCH ×2 (08:38→18:31)
[2017-05-24] MEDS: SENNOSIDES/DOCUSATE SODIUM TAB PO SCH ×2 (08:38→21:53)
[2017-05-24] MEDS: PRAVASTATIN SODIUM 40 MG TAB PO SCH (08:38)
[2017-05-24] MEDS: POLYETHYLENE GLYCOL 3350 17 GM PKT PO SCH ×2 (08:39→17:35)
[2017-05-24] MEDS: morphINE SR 30 MG TAB PO SCH ×3 (08:39→21:52)
[2017-05-24] MEDS: BUDESONIDE/FORMOTEROL 160/4.5 60 PUFFS/MDI IH SCH ×2 (08:58→20:47)
[2017-05-24] MEDS: MONTELUKAST SODIUM 10 MG TAB PO SCH (21:50)
[2017-05-25] MEDS: oxyCODONE IR 5 MG TAB PO PRN ×3 (00:48→15:26)
[2017-05-25] MEDS: IRBESARTAN 150 MG TAB PO SCH (01:35)
[2017-05-25] MEDS: POLYETHYLENE GLYCOL 3350 17 GM PKT PO SCH ×3 (01:36→16:13)
[2017-05-25] MEDS: HYDROmorphONE/DILAUDID 2 MG TAB PO PRN ×2 (02:42→10:01)
[2017-05-25] MEDS: METHOCARBAMOL 750 MG TAB PO SCH ×3 (06:21→16:12)
[2017-05-25] MEDS: BUDESONIDE/FORMOTEROL 160/4.5 60 PUFFS/MDI IH SCH (08:07)
[2017-05-25] MEDS: morphINE SR 30 MG TAB PO SCH ×2 (08:08→16:12)
[2017-05-25] MEDS: SENNOSIDES/DOCUSATE SODIUM TAB PO SCH (08:09)
[2017-05-25] MEDS: PRAVASTATIN SODIUM 40 MG TAB PO SCH (08:09)
[2017-05-25] MEDS: CARVEDILOL 6.25 MG TAB PO SCH (08:09)
[2017-05-25] MEDS: FAMOTIDINE 20 MG TAB PO SCH (08:10)
[2017-05-25] MEDS: ENOXAPARIN 40 MG/0.4 ML SYR SC SCH (08:10)
--- NOTE | 2017-05-25 08:13 | NEUSURGPN ---
Date of Surgery: 05/22/17 Post Op Day: 3 Assessment/Plan: Assessment: 56 yo M sp T12-S1 fusion with L3 osteotomy POD#3 Plan: -neuro stable -pain control: Patient still required IV pain medication last night, will attempt to admin orals only -Ok to place ice pack to incisional area -Ku removed yesterday, no difficulties with urination -Hgb 5.9 yesterday, administered 2 units PRBC's, Hgb 8.9 this am -Post op xrays pending, will get done this am -WILMAN to suction, will leave in place-420ml output yesterday after placing to suction -Ok to get out of bed with Sameer schafer -PT/OT -SCDs/TEDs -Patient desires to go home but understands that we need to work on pain management today to ensure he is covered with oral medications, will assess later today when xrays complete and eval pain control -Please contact neurosurgery with any changes in neuro status/exam -Discussed with Dr. Avendano Subjective: wants to go home, expected incisional pain Objective: AxO x3 PERRLA 5/5 BLE Sensation intact to light touch BLE Dressing CDI WILMAN patent, to suction Neuro Check Frequency: per routine Urinary Catheter in Place: No - Physician Discussed Patient with : Juan Alberto Neurosurgery Physical Exam - Vitals, I&O, Labs I and O 05/24/17 05/25/17 05/26/17 05:59 05:59 05:59 Intake Total 800 1026 Output Total 1675 2320 Balance -875 -1294 Intake: Oral (ml) 800 976 IV Infused (ml) 50 ceFAZolin 1 GM/DEXTROSE 50 50 ml @ 200 mls/hr IV Q8H [facility] Rx#:[id number] Output: Urine (ml) 1600 1900 Catheter 1600 Toilet 425 Urinal 1475 WILMAN Drain Output (ml) 75 420 Back Dustin [place] 75 420 Other: Intake Quantity Yes Sufficient Number of Voids Toilet 1 Urinal 1 Number of Stools Toilet 1 1 Urinal 1 Vital Signs Temp Pulse Resp BP Pulse Ox 36.6 C 77 18 122/56 H 90 L 05/25/17 07:21 05/25/17 08:09 05/25/17 07:21 02/08/18 08:09 05/25/17 07:21 Laboratory Results 05/25/17 04:15 05/21/17 04:31 ICD10 Worksheet Patient Problems: Problems Problem Status Onset Fusion of spine of thoracolumbar region Acute
[2017-05-25 15:25] VITALS: BP 114/59; PULSE 81; RESP 16; TEMP 97.4; O2SAT 91
[2017-05-25] MEDS: ONDANSETRON DISINTEGRATING 4 MG TAB PO PRN (15:27)
== END 2017-05-25 16:14 | disposition home or self-care (01) | DRG 454 ==
LOC: F3N 08:45 → F2N 18:32 → F3N 05-20 11:47
PROVIDERS: ADMIT Neurological Surgery; ATTEND Neurological Surgery
PROC: 0SG30AJ Fusion of Lumbosacral Joint with Interbody Fusion Device, Posterior Approach, Anterior Column, Open Approach (ICD-10-PCS; principal; 2017-05-18 10:15)
PROC: BR1B1ZZ Fluoroscopy of Lumbosacral Joint using Low Osmolar Contrast (ICD-10-PCS; principal; 2017-05-18 10:15)
PROC: 0ST40ZZ Resection of Lumbosacral Disc, Open Approach (ICD-10-PCS; principal; 2017-05-18 10:15)
PROC: 0SB30ZZ Excision of Lumbosacral Joint, Open Approach (ICD-10-PCS; principal; 2017-05-18 10:15)
PROC: 4A10X4G Monitoring of Central Nervous Electrical Activity, Intraoperative, External Approach (ICD-10-PCS; principal; 2017-05-18 10:15)
PROC: 0SB00ZZ Excision of Lumbar Vertebral Joint, Open Approach (ICD-10-PCS; principal; 2017-05-18 10:15)
PROC: 0ST20ZZ Resection of Lumbar Vertebral Disc, Open Approach (ICD-10-PCS; principal; 2017-05-18 10:15)
PROC: 8E0WXBZ Computer Assisted Procedure of Trunk Region (ICD-10-PCS; principal; 2017-05-18 10:15)
PROC: 0SG10AJ Fusion of 2 or more Lumbar Vertebral Joints with Interbody Fusion Device, Posterior Approach, Anterior Column, Open Approach (ICD-10-PCS; principal; 2017-05-18 10:15)
PROC: 0RG Upper Joints, Fusion (ICD-10-PCS; principal; 2017-05-18 10:15)
PROC: BR161ZZ Fluoroscopy of Lumbar Facet Joint(s) using Low Osmolar Contrast (ICD-10-PCS; principal; 2017-05-18 10:15)
PROC: 8E0WXBZ Computer Assisted Procedure of Trunk Region (ICD-10-PCS; 2017-05-22 13:00)
PROC: 0SG00AJ Fusion of Lumbar Vertebral Joint with Interbody Fusion Device, Posterior Approach, Anterior Column, Open Approach (ICD-10-PCS; 2017-05-22 13:00)
PROC: 0RG6071 Fusion of Thoracic Vertebral Joint with Autologous Tissue Substitute, Posterior Approach, Posterior Column, Open Approach (ICD-10-PCS; 2017-05-22 13:00)
PROC: 3E0V0GB Introduction of Recombinant Bone Morphogenetic Protein into Bones, Open Approach (ICD-10-PCS; 2017-05-22 13:00)
PROC: 0SG0071 Fusion of Lumbar Vertebral Joint with Autologous Tissue Substitute, Posterior Approach, Posterior Column, Open Approach (ICD-10-PCS; 2017-05-22 13:00)
PROC: 0SG3071 Fusion of Lumbosacral Joint with Autologous Tissue Substitute, Posterior Approach, Posterior Column, Open Approach (ICD-10-PCS; 2017-05-22 13:00)
PROC: 0QP004Z Removal of Internal Fixation Device from Lumbar Vertebra, Open Approach (ICD-10-PCS; 2017-05-22 13:00)
PROC: 0PP404Z Removal of Internal Fixation Device from Thoracic Vertebra, Open Approach (ICD-10-PCS; 2017-05-22 13:00)
PROC: 0QS00ZZ Reposition Lumbar Vertebra, Open Approach (ICD-10-PCS; 2017-05-22 13:00)
PROC: BR161ZZ Fluoroscopy of Lumbar Facet Joint(s) using Low Osmolar Contrast (ICD-10-PCS; 2017-05-22 13:00)
PROC: 0QP104Z Removal of Internal Fixation Device from Sacrum, Open Approach (ICD-10-PCS; 2017-05-22 13:00)
DX: M48.062 Spinal stenosis, lumbar region with neurogenic claudication (principal); M51.36 Other intervertebral disc degeneration, lumbar region; M51.37 Other intervertebral disc degeneration, lumbosacral region; M40.35 Flatback syndrome, thoracolumbar region; N17.9 Acute kidney failure, unspecified; E87.5 Hyperkalemia; I10 Essential (primary) hypertension; J45.909 Unspecified asthma, uncomplicated; Z87.891 Personal history of nicotine dependence; E66.9 Obesity, unspecified
CPT/HCPCS: 97116-GP; 97161-GP; 97164-GP; 97166-GO; 97530-GO; 97530-GP; 97535-GO; C1713; J0171; J0690; J1100; J1170; J1650; J2212; J2250; J2270; J2274; J2405; J2550; J2704; J2765; J3010; J3360; J7060; P9016

== ENCOUNTER 2017-06-19 18:40 | Emergency (ER) | payer OTHER ==
[2017-06-19 16:54] VITALS: RESP 18
[~2017-06-19 18:40] MED LIST changes: +ALTEPLASE 2 MG VIAL IVP PRN; +FLUMAZENIL 0.5 MG/5 ML MDV IVP PRN; -GADOBUTROL 10 ML VIAL IVP ONE; +GLUCAGON HCL 1 MG VIAL IVP PRN; +HEPARIN 10,000 UNIT/10 ML MDV (1,000 UNIT/ML) IVP PRN; +IOPAMIDOL (ISOVUE-300) 100 ML BTL ONE; +LIDOCAINE 1% 300 MG/30 ML SDV ONE; +MEPERIDINE 25 MG/ML SYR IVP PRN; +MIDAZOLAM 2 MG/2 ML VIAL IVP PRN; +NALOXONE HCL 0.4 MG/ML INJ IVP PRN; +NS 1,000 ML IV SCH; +PROTAMINE SULFATE 50 MG/5 ML VIAL IVP PRN; +fentaNYL 100 MCG/2 ML INJ IVP PRN; -fentaNYL 100 MCG/2 ML INJ ONE
--- NOTE | 2017-06-19 19:00 | EDPHY ---
H & P Stated Complaint: left big toe, pos infection, sent by dr baxter Time Seen by Provider: 06/19/17 18:46 HPI/ROS: CHIEF COMPLAINT: Toe infection HISTORY OF PRESENT ILLNESS: The patient is a 56-year-old man sent by Neurosurgery for possible toe infection. The patient is 1 month status post lumbar fusion that needed revision few days later. For the last week he has had intermittent fevers. He was found on MRI today to have a postsurgical fluid collection in the operative bed consistent with a seroma or hematoma or abscess or pseudomeningocele. Interventional Radiology drain the abscess and g stain is currently pending. He was sent to the ER to wait for the Gram stain results and if they are positive to be admitted. Also they requested that we evaluate his right great toe which has a very slight erythema over the dorsal aspect. No nail bed involvement. No obvious involvement of the foot. The patient states that it is painful and became painful about 3-4 days ago. He does not have any history of diabetes or gout. REVIEW OF SYSTEMS: Constitutional: denies: chills, fever, recent illness, recent injury EENTM: denies: blurred vision, double vision, nose congestion Respiratory: denies: cough, shortness of breath Cardiac: denies: chest pain, irregular heart rate, lightheadedness, palpitations Gastrointestinal/Abdominal: denies: abdominal pain, diarrhea, nausea, vomiting, blood streaked stools Genitourinary: denies: dysuria, frequency, hematuria, pain Musculoskeletal: See HPI Skin: See HPI Neurological: denies: headache, numbness, paresthesia, tingling, dizziness, weakness Hematologic/Lymphatic: denies: blood clots, easy bleeding, easy bruising Immunologic/allergic: denies: HIV/AIDS, transplant EXAM: GENERAL: Well-appearing, well-nourished and in no acute distress. HEAD: Atraumatic, normocephalic. EYES: Pupils equal round and reactive to light, extraocular movements intact, sclera anicteric, conjunctiva are normal. ENT: TMs normal, nares patent, oropharynx clear without exudates. Moist mucous membranes. NECK: Normal range of motion, supple without lymphadenopathy or JVD. LUNGS: Breath sounds clear to auscultation bilaterally and equal. No wheezes rales or rhonchi. HEART: Regular rate and rhythm without murmurs, rubs or gallops. ABDOMEN: Soft, nontender, normoactive bowel sounds. No guarding, no rebound. No masses appreciated. BACK: Drain in place from procedure today, No CVA tenderness, no spinal tenderness, step-offs or deformities EXTREMITIES: Very slight erythema to the dorsum of right great toe. Slightly warm to the touch. No pain with movement of the joint. No joint swelling. No swelling of the foot. NEUROLOGICAL: Cranial nerves II through XII grossly intact. Normal speech, normal gait. 5/5 strength, normal movement in all extremities, normal sensation PSYCH: Normal mood, normal affect. SKIN: Warm, dry, normal turgor, no visible rashes or lesions. Source: Patient, RN/MD Exam Limitations: No limitations - Personal History Current Tetanus/Diphtheria Vaccine: No Current Tetanus Diphtheria and Acellular Pertussis (TDAP): No - Medical/Surgical History Hx Asthma: No Hx Chronic Respiratory Disease: No Hx Diabetes: No Hx Cardiac Disease: No Hx Renal Disease: No Hx Cirrhosis: No Other PMH: back cyst, right knee surgey, tonselectomy, sinus work - Social History Smoking Status: Former smoker Alcohol Use: Sober Drug Use: None Constitutional: Initial Vital Signs Heart Rate 77 06/19/17 16:47 Respiratory Rate 18 06/19/17 16:47 Blood Pressure 135/86 H 06/19/17 16:47 O2 Sat (%) 96 06/19/17 16:47 O2 Delivery Mode Room Air Allergies/Adverse Reactions: ENVIRONMENTAL Allergy (Mild, Uncoded 01/02/12 10:16) NASAL CONGESTION/SNEEZING/WATERY EYES Home Medications: Medication Instructions Recorded Albuterol [Proventil Inhaler HFA 1 - 2 puffs IH Q4H 05/02/17 (*)] Montelukast Sodium [Singulair] 10 mg PO HS 05/02/17 Budesonide/Formoterol 160/4.5 2 puffs IH BID 05/17/17 [Symbicort 160-4.5 Mcg Inh (*)] Carvedilol 12.5 mg PO BIDMEAL 05/17/17 Hydrochlorothiazide [HCTZ (*)] 25 mg PO DAILY 05/17/17 Irbesartan [Avapro] 300 mg PO HS 05/17/17 Pravastatin Sodium [Pravachol] 40 mg PO DAILY 05/17/17 Spironolactone [Aldactone 25 MG 50 mg PO DAILY 05/17/17 (*)] amLODIPine BESYLATE [Norvasc 10 mg 10 mg PO HS 05/17/17 (*)] Methocarbamol [Robaxin 750 mg (*)] 750 mg PO QID #90 tab 05/25/17 Sennosides/Docusate Sodium 1 - 2 tab PO BID tab 05/25/17 [Senokot-S] morphINE SR [MS Contin/Oramorph SR 30 mg PO TID #60 tab 05/25/17 30 mg (*)] oxyCODONE IR [Oxycodone Ir (*)] 5 - 15 mg PO Q4HRS PRN #90 tab 05/25/17 Cephalexin [Keflex] 500 mg PO TID #21 cap 06/19/17 Sulfamethox/Tmp 800/160 mg 1 tab PO BID #14 tab 06/19/17 [Bactrim Ds] Medical Decision Making ED Course/Re-evaluation: I discussed the case with Dr. Baxter. He is reassured by the all Gram stain. He agrees with starting Bactrim and Keflex for the toe and will follow up in the clinic and follow the culture results. Differential Diagnosis: Partial list of the Differential diagnosis considered include but were not limited to; back abscess, seroma, 5th toe cellulitis, osteomyelitis and although unlikely based on the history and physical exam, I also considered gout , arthritis, DVT. I discussed these differential diagnoses and the plan with the patient as well as the usual and expected course. The patient understands that the diagnosis is provisional and that in medicine we are not always correct and that further workup is often warranted. Usual and customary warnings were given. All of the patient's questions were answered. The patient was instructed to return to the emergency department should the symptoms at all worsen or return, otherwise to followup with the physician as we discussed. - Data Points Microbiology Results: MICROBIOLOGY 06/19/17 18:20 Back - Aspirate Gram Stain - Final Medications Given: Discontinued Medications Cephalexin HCl (Keflex) 500 mg PO EDNOW ONE PRN Reason: Protocol Stop: 06/19/17 19:49 Last Admin: 06/19/17 19:57 Dose: 500 mg Fentanyl (Sublimaze) 0 mcg IVP ONCALL PRN PRN Reason: Per provider during procedure Stop: 06/19/17 17:11 Last Admin: 06/19/17 17:10 Dose: 100 mcg Hydromorphone HCl (Dilaudid) 1 mg IVP EDNOW ONE Stop: 06/19/17 19:42 Last Admin: 06/19/17 19:50 Dose: Not Given Hydromorphone HCl (Dilaudid) 1 mg IVP EDNOW ONE Stop: 06/19/17 19:43 Last Admin: 06/19/17 19:50 Dose: Not Given Sodium Chloride (Ns) 1,000 mls @ 30 mls/hr IV CONT MOISES Stop: 12/16/17 16:14 Last Admin: 06/19/17 17:10 Dose: 1,000 mls Ondansetron HCl (Zofran) 4 mg IVP EDNOW ONE Stop: 06/19/17 19:42 Last Admin: 06/19/17 19:50 Dose: Not Given Trimethoprim/Sulfamethoxazole (Bactrim Ds) 1 ea PO EDNOW ONE PRN Reason: Protocol Stop: 06/19/17 19:49 Last Admin: 06/19/17 19:57 Dose: 1 ea Departure - Departure Disposition: Home, Routine, Self-Care Clinical Impression: Seroma due to trauma Cellulitis Qualifiers: Site of cellulitis: extremity Site of cellulitis of extremity: toe Laterality: right Qualified Code(s): L03.031 - Cellulitis of right toe Condition: Fair Instructions: Cephalexin (By mouth), Sulfamethoxazole/Trimethoprim (By mouth), Cellulitis (ED), Seroma (DC) Referrals: Latha Bailey [Primary Care Provider] - As per Instructions Jun Avendano MD [Medical Doctor] - As per Instructions Prescriptions: Cephalexin [Keflex] 500 mg PO TID #21 cap Sulfamethox/Tmp 800/160 mg [Bactrim Ds] 1 tab PO BID #14 tab
[2017-06-19] MEDS ORDERED: ONDANSETRON 4 MG/2 ML VIAL IVP ONE (19:41)
[2017-06-19] MEDS ORDERED: HYDROmorphONE/DILAUDID 1 MG/ML INJ IVP ONE (19:41)
[2017-06-19] MEDS ORDERED: HYDROmorphONE/DILAUDID 2 MG/ML INJ IVP ONE (19:42)
[2017-06-19] MEDS ORDERED: CEPHALEXIN 500 MG CAP PO ONE (19:48)
[2017-06-19] MEDS ORDERED: SULFAMETHOX/TMP 800/160 MG 1 TAB PO ONE (19:48)
[2017-06-19 20:11] VITALS: BP 138/78; PULSE 81; TEMP 98.2; O2SAT 97
== END 2017-06-19 20:11 | disposition home or self-care (01) ==
DX: L03.031 Cellulitis of right toe (principal); T79.2XXA Traumatic secondary and recurrent hemorrhage and seroma, initial encounter; Z87.891 Personal history of nicotine dependence
CPT/HCPCS: 96374; J1170; J2405; Q9967

== ENCOUNTER → 2017-06-19 | Outpatient (CLI) | payer OTHER ==
[~2017-06-19] MED LIST changes: +GADOBUTROL 10 ML VIAL IVP ONE; -SODIUM CHLORIDE IV ONE; -TRANEXAMIC ACID 1,000 MG in NS 100 ML IV ONE; -TRANEXAMIC ACID IV ONE; +fentaNYL 100 MCG/2 ML INJ ONE; -morphINE PF 5 MG/10 ML INJ IT ONE
== END ==
LOC: FIMAGING 12:01
PROVIDERS: ATTEND Physician Assistant Surgical
DX: M48.061 Spinal stenosis, lumbar region without neurogenic claudication (principal); M51.36 Other intervertebral disc degeneration, lumbar region; Z98.1 Arthrodesis status
CPT/HCPCS: A9585; J3010

== ENCOUNTER → 2017-08-16 | Outpatient (CLI) | payer OTHER | LOC: FIMAGING 10:00 | PROVIDERS: ATTEND Physician Assistant Surgical | DX: Z98.1 Arthrodesis status (principal); M46.04 Spinal enthesopathy, thoracic region ==